=== PATIENT | female | born 1940 | race Caucasian/White ===

== ENCOUNTER 2016-07-23 13:07 | Emergency (ER) | payer OTHER ==
[~2016-07-23] VITALS: Ht 165.1 cm; Wt 86.2 kg
[2016-07-23 13:07] VITALS: BP_SYST 134
[2016-07-23 14:25] VITALS: BP_SYST 134
== END 2016-07-23 14:25 | disposition home or self-care (01) ==
LOC: SED 13:07
DX: S82.142A Displaced bicondylar fracture of left tibia, initial encounter for closed fracture (principal); J44.9 Chronic obstructive pulmonary disease, unspecified; I10 Essential (primary) hypertension; E11.9 Type 2 diabetes mellitus without complications; W19.XXXA Unspecified fall, initial encounter; Y93.89 Activity, other specified; Y92.091 Bathroom in other non-institutional residence as the place of occurrence of the external cause; Y99.8 Other external cause status
CPT/HCPCS: 73564; 99284